=== PATIENT | female | born 1995 | race Caucasian/White ===

== ENCOUNTER → 2018-09-26 | Outpatient (REF) | payer OTHER | LOC: M SFHCLERA 11:59 | DX: J02.9 Acute pharyngitis, unspecified (principal) ==

== ENCOUNTER → 2019-02-22 | Outpatient (CLI) | payer OTHER ==
--- NOTE | 2019-02-22 14:09 | REP ---
RIGHT FIFTH DIGIT: Four views of the right fifth digit are performed and demonstrate no fracture, dislocation, or intrinsic bone disease. IMPRESSION: No evidence of acute fracture or dislocation. Electronically Signed by Melquiades Jackson MD 02/22/2019 03:24 P
== END ==
LOC: M LRY 13:17
PROVIDERS: ATTEND Physician Assistant
DX: S69.91XA Unspecified injury of right wrist, hand and finger(s), initial encounter (principal); X58.XXXA Exposure to other specified factors, initial encounter; Y92.89 Other specified places as the place of occurrence of the external cause

== ENCOUNTER 2019-04-18 13:40 | Emergency (ER) | payer OTHER ==
[~2019-04-18] VITALS: Ht 185.4 cm; Wt 140.9 kg
[2019-04-18] MEDS ORDERED: KETOROLAC 30 MG/ML VIAL (J1885) IV ONE (15:00)
[2019-04-18] MEDS ORDERED: ACETAMINOPHEN 325 MG TAB PO ONE (15:00)
[2019-04-18] MEDS ORDERED: ONDANSETRON 4MG/2ML VIAL (J2405) IV ONE (15:00)
[2019-04-18] MEDS ORDERED: NS 1,000 ML IV ONE (15:00)
[2019-04-18 15:07] LABS: BASO % 0.2 % (0.0-1.0); EOS # 0.1 10^3/uL (0.0-0.50); EOS % 0.3 % (0.0-3.0); HEMATOCRIT 38.6 % (36.0-47.0); HEMOGLOBIN 12.9 g/dl (12.0-15.5); LYMPH # 0.6 10^3/uL (1.5-6.5); MEAN CORPUSCULAR HEMOGLOBIN 27.4 pg (27.0-33.0); MEAN CORPUSCULAR HGB CONC 33.4 g/dl (32.0-36.5); MEAN CORPUSCULAR VOLUME 82.1 fl (80.0-96.0); MONO # 0.2 10^3/uL (0.0-0.8); MONO % 1.2 % (0.0-5.0); NEUTROPHILS # 14.2 10^3/uL (1.8-7.7); NEUTROPHILS % 93.9 % (36.0-66.0); PLATELET COUNT, AUTOMATED 253 10^3/uL (150-450); WHITE BLOOD COUNT 15.1 10^3/uL (4.0-10.0)
[2019-04-18] MEDS ORDERED: CIPROFLOXACIN 400 MG in APPROPRIATE DILUENT 1 EA IV ONE (15:15)
[2019-04-18 15:22] LABS: ALBUMIN 3.7 GM/DL (3.2-5.2); ALT/SGPT 27 U/L (12-78); BILIRUBIN,DIRECT 0.3 MG/DL (0.0-0.2); BILIRUBIN,TOTAL 0.7 MG/DL (0.2-1.0); BLOOD UREA NITROGEN 14 MG/DL (7-18); CALCIUM LEVEL 8.7 MG/DL (8.5-10.1); CARBON DIOXIDE LEVEL 24 MEQ/L (21-32); CHLORIDE LEVEL 102 MEQ/L (98-107); GLOMERULAR FILTRATION RATE > 60.0 (>60); GLUCOSE, FASTING 93 MG/DL (70-100); LIPASE 95 U/L (73-393); POTASSIUM SERUM 3.7 MEQ/L (3.5-5.1); SODIUM LEVEL 135 MEQ/L (136-145); TOTAL PROTEIN 7.1 GM/DL (6.4-8.2)
[2019-04-18] MEDS ORDERED: NORC1TAB7 PO (16:27)
[2019-04-18] MEDS ORDERED: CIPR-249 PO (16:27)
[2019-04-18] MEDS ORDERED: ZOFR4TAB16 PO (16:27)
--- NOTE | 2019-04-18 16:41 | REP ---
CT ABDOMEN AND PELVIS WITHOUT CONTRAST: CT abdomen and pelvis was performed without oral or IV contrast. Sagittal and coronal reconstruction images are performed. Visualized lung bases demonstrate no evidence of acute infiltrate. The liver, spleen, adrenals, pancreas and kidneys appear essentially unremarkable. Tiny punctate calcification is seen in the right upper pole collecting system. There is no evidence of ureteral calculus or hydroureteronephrosis bilaterally. There is no abdominal aortic aneurysm. There is no adenopathy. There is no free air or free fluid. The bowel wall thickening is seen. There is no evidence of appendicitis. There is a cystic structure of the left ovary approximately 4 cm in diameter. Otherwise no pelvic mass is seen. Urinary bladder appears grossly unremarkable. IMPRESSION: No evidence of renal or ureteral calculus and no evidence of hydroureteronephrosis. No evidence of appendicitis. There is a cyst of the left ovary 4 cm in maximum diameter. No free air or free fluid. Electronically Signed by Melquiades Jackson MD 04/20/2019 08:41 A
[2019-04-18 16:54] VITALS: BP 131/74
== END 2019-04-18 16:56 | disposition home or self-care (01) ==
LOC: M ED 13:40
DX: N10 Acute pyelonephritis (principal); R11.0 Nausea
CPT/HCPCS: 74176; 80048; 80076; 81001; 83605; 83690; 84702; 85025; 87040; 87088; 87186; 96365; 96375; 99284; G0463; J0744; J1885; J2405